=== PATIENT | female | born 1940 | race Caucasian/White ===

== ENCOUNTER 2021-01-14 09:06 | Day surgery (SDC) | payer MEDICARE, SELFPAY ==
--- NOTE | 2021-01-14 08:59 | HO.ANESPROP2 ---
HPI - Anesthesia Eval Consult details Narrative: 80 yo female patient for EGD, Colonoscopy [facility] Past Medical History Medical History Asthma CAD (coronary artery disease) Carotid artery disease CKD (chronic kidney disease) Diabetes Dyslipidemia Gout HTN (hypertension) Hx of myocardial infarction Hypothyroidism On anticoagulant therapy PAF (paroxysmal atrial fibrillation) Surgical History Surgical History History of quadruple bypass Hx of section Hx of hysterectomy Social History Social History Patient Tobacco Use Status: Never used Tobacco Use of substances other than those prescribed or required for medical reasons: No Are you DNR?: Yes Advance Directives: No Advance Directives Information Provided: Yes Meds Allergies Allergy/AdvReac Type Severity Reaction Status Date / Time amlodipine [From Norvasc] Allergy Unknown Verified 01/10/21 10:32 celecoxib [From Celebrex] Allergy Unknown Verified 01/10/21 10:32 ciprofloxacin [From Cipro] Allergy Unknown Verified 01/10/21 10:32 clarithromycin [From Biaxin] Allergy Unknown Verified 01/10/21 10:32 doxycycline Allergy Unknown Verified 01/10/21 10:32 glimepiride [From Amaryl] Allergy Unknown Verified 01/10/21 10:32 glyburide Allergy Unknown Verified 01/10/21 10:32 hydrochlorothiazide Allergy Unknown Verified 01/10/21 10:32 latex Allergy Unknown Verified 01/10/21 10:32 lisinopril Allergy Unknown Verified 01/10/21 10:32 mepolizumab [From Nucala] Allergy Unknown Verified 01/10/21 10:32 metformin [From Glucophage] Allergy Unknown Verified 01/10/21 10:32 morphine Allergy Unknown Verified 01/10/21 10:32 nifedipine [From Procardia] Allergy Unknown Verified 01/10/21 10:32 oxybutynin [From Ditropan] Allergy Unknown Verified 01/10/21 10:32 Penicillins Allergy Unknown Verified 01/10/21 10:32 pioglitazone [From Actos] Allergy Unknown Verified 01/10/21 10:32 risedronate sodium Allergy Unknown Verified 01/10/21 10:32 [From Actonel] sulfamethoxazole Allergy Unknown Verified 01/10/21 10:32 [From Bactrim] trimethoprim [From Bactrim] Allergy Unknown Verified 01/10/21 10:32 Home Medications Medication Instructions Recorded Confirmed Last Taken Type amiodarone 200 mg tablet 200 mg PO DAILY 01/10/21 01/10/21 Unknown History apixaban 2.5 mg tablet (Eliquis) 2.5 mg PO BID 01/10/21 01/10/21 Unknown History carvedilol 3.125 mg tablet 3.125 mg PO BID 01/10/21 01/10/21 Unknown History cholecalciferol (vitamin D3) 25 25 mcg PO DAILY 01/10/21 01/10/21 Unknown History mcg (1,000 unit) capsule (Vitamin D3) clopidogrel 75 mg tablet 75 mg PO DAILY 01/10/21 01/14/21 01/08/21 History cranberry extract 250 mg tablet mg PO 01/10/21 Unknown History felodipine 5 mg tablet,extended 5 mg PO DAILY 01/10/21 01/10/21 Unknown History release 24 hr glipizide 5 mg tablet 2.5 mg PO BID 01/10/21 01/10/21 Unknown History isosorbide mononitrate 60 mg 60 mg PO DAILY 01/10/21 01/14/21 01/14/21 05:30 History tablet,extended release 24 hr losartan 50 mg tablet 50 mg PO DAILY 01/10/21 01/10/21 Unknown History omeprazole 20 mg tablet,delayed 20 mg PO DAILY 01/10/21 01/10/21 Unknown History release ranolazine 500 mg tablet,extended 500 mg PO BID 01/10/21 01/10/21 Unknown History release,12 hr rosuvastatin 20 mg tablet 20 mg PO DAILY 01/10/21 01/10/21 Unknown History spironolactone 25 mg tablet 25 mg PO DAILY 01/10/21 01/10/21 Unknown History Exam Exam Date and Time: January 14, 2021 0859 Height,Weight and Vital Signs: Height 5 ft 2 in Weight 65.317 kg Vital Signs Temp Pulse Resp BP Pulse Ox 01/14/21 09:42 96.7 F L 57 18 173/59 H 98 fy Pertinent Lab Results Pertinent Lab Results: 01/02 12 lead ekg: SB 50. Incomplete RBBB. Cannot rule out anterior [place]
[2021-01-14 09:39] LABS: Glucose, Whole Blood 90 mg/dL (60-115)
[2021-01-14 09:42] VITALS: BP 173/59; PULSE 57; RESP 18; TEMP 35.9; O2SAT 98; BMI 26.3
--- NOTE | 2021-01-14 09:42 | MHC.SHP ---
Pre-Procedural Eval Section A Date of Service: 01/14/21 The patient is an INPATIENT: No Changes since office visit: No Cold of Flu in the past 2 weeks, No New Medical Problems, No Changes in Medication and No Patient answered all questions The History & Physical has been completed within 30 days and I have reviewed it.: Yes Section B Chief Complaint: Gastric hemorrhage Allergies: Allergies Allergy/AdvReac Type Severity Reaction Status Date / Time amlodipine [From Norvasc] Allergy Unknown Verified 01/10/21 10:32 celecoxib [From Celebrex] Allergy Unknown Verified 01/10/21 10:32 ciprofloxacin [From Cipro] Allergy Unknown Verified 01/10/21 10:32 clarithromycin [From Biaxin] Allergy Unknown Verified 01/10/21 10:32 doxycycline Allergy Unknown Verified 01/10/21 10:32 glimepiride [From Amaryl] Allergy Unknown Verified 01/10/21 10:32 glyburide Allergy Unknown Verified 01/10/21 10:32 hydrochlorothiazide Allergy Unknown Verified 01/10/21 10:32 latex Allergy Unknown Verified 01/10/21 10:32 lisinopril Allergy Unknown Verified 01/10/21 10:32 mepolizumab [From Nucala] Allergy Unknown Verified 01/10/21 10:32 metformin [From Glucophage] Allergy Unknown Verified 01/10/21 10:32 morphine Allergy Unknown Verified 01/10/21 10:32 nifedipine [From Procardia] Allergy Unknown Verified 01/10/21 10:32 oxybutynin [From Ditropan] Allergy Unknown Verified 01/10/21 10:32 Penicillins Allergy Unknown Verified 01/10/21 10:32 pioglitazone [From Actos] Allergy Unknown Verified 01/10/21 10:32 risedronate sodium Allergy Unknown Verified 01/10/21 10:32 [From Actonel] sulfamethoxazole Allergy Unknown Verified 01/10/21 10:32 [From Bactrim] trimethoprim [From Bactrim] Allergy Unknown Verified 01/10/21 10:32 Plan I have reviewed the history and physical and performed a pertinent physical examination on my patient. No changes have occurred unless specified.
[2021-01-14] MEDS: Lactated Ringers 1,000 ML 50 ML IVCONT (09:52)
--- NOTE | 2021-01-14 10:40 | P.BOP_ITS ---
Brief Operative Note Date of Service: 01/14/21 Pre-op diagnosis: gi bleed Post-op diagnosis: same (gastritis) Procedure: egd, colon Surgeon: Ronny Pinto Anesthesia: MAC Was an Import Export Agent used for this Procedure?: No Estimated blood loss (mL): 1.0 Pathology: other (antral biopsies) Condition: stable Disposition: PACU
[2021-01-14 10:44] VITALS: BP 114/47; PULSE 53; RESP 18; TEMP 37.2; O2SAT 98
--- NOTE | 2021-01-14 10:55 | OP_ITS ---
SURGEON: Ronny Pinto MD INDICATIONS: GI bleeding. PREOPERATIVE DIAGNOSIS: POSTOPERATIVE DIAGNOSIS: PROCEDURE PERFORMED: 1. Upper endoscopy with biopsy. 2. Colonoscopy to the terminal ileum. ESTIMATED BLOOD LOSS: COMPLICATIONS: ANESTHESIA: ASSISTANTS: SPECIMENS: MEDICATIONS: Monitored anesthesia care. DESCRIPTION OF PROCEDURE: History and physical performed. The risks and benefits of the procedure were explained to the patient. Informed consent was obtained. The patient was placed in the left lateral decubitus position. The Olympus video gastroscope was introduced into the esophagus, stomach, and duodenum. Examination was performed and the scope was removed. She was repositioned for colonoscopy. A digital rectal exam was performed and was found to be normal. The Olympus pediatric video colonoscope was introduced into the rectum and advanced to the cecum without difficulty. The cecum was identified by transillumination, palpation, and identification of ileocecal valve. Examination was performed and the scope was removed. She tolerated both procedures well and was taken to recovery area in stable condition. FINDINGS: UPPER ENDOSCOPY: Esophagus: The esophagus was normal. There was no esophagitis. Stomach: The stomach showed no evidence of masses or ulcers. There was antral gastritis without ulceration. Biopsies were obtained from the antrum to evaluate for H pylori. Duodenum: The bulb and second portion were normal. COLONOSCOPY: The terminal ileum was examined and appeared normal. The visualized colonic mucosa was normal. The quality of the prep was good. No polyps were identified. Retroflexed examination was normal. IMPRESSION: 1. Gastritis. 2. Normal colonoscopy. RECOMMENDATIONS: 1. Follow up the biopsy results. 2. Repeat colonoscopy for cancer screening is not recommended based on age. MD KAREN Portillo/REAL / [id number]
[2021-01-14 10:57] VITALS: BP 164/59; PULSE 59; RESP 18; TEMP 37.2; O2SAT 98
--- NOTE | 2021-01-14 12:31 | HO.ANESPROP2 ---
HPI - Anesthesia Eval Consult details Narrative: 80 yo female patient for EGD, Colonoscopy PMF Active Problems Active Problems: H/o GI bleed Iron deficiency anemia HTN- Difficult to control CAD S/p stents 19yrs ago, CABGx4 18 yrs ago. Cath 08/2019 Only 2/4 grafts patent Angina. On medical therapy but still with symptoms of chest pain Paroxysmal afib. Sinus vic today. On eliquis. Last dose about 1 week ago CKD stage 3 Peripheral Artery disease S/p Left common iliac stent 2007. On Plavix. Last dose over a week ago GERD Asthma. Controlled Frequent UTIs Subclinical hypothyroidism Hematuria Past Medical History Medical History (Updated 01/14/21 @ 12:35 by Claudia Orellana MD) Asthma CAD (coronary artery disease) Carotid artery disease CKD (chronic kidney disease) Diabetes Dyslipidemia Gout HTN (hypertension) Hx of myocardial infarction Hypothyroidism On anticoagulant therapy PAF (paroxysmal atrial fibrillation) Family History Family history of problems with anesthesia: No Surgical History Surgical History History of quadruple bypass Hx of section Hx of hysterectomy History of Problems with Anesthesia: No Social History Social History Patient Tobacco Use Status: Never used Tobacco Use of substances other than those prescribed or required for medical reasons: No Are you DNR?: Yes Advance Directives: No Advance Directives Information Provided: Yes Meds Allergies Allergy/AdvReac Type Severity Reaction Status Date / Time amlodipine [From Norvasc] Allergy Unknown Verified 01/10/21 10:32 celecoxib [From Celebrex] Allergy Unknown Verified 01/10/21 10:32 ciprofloxacin [From Cipro] Allergy Unknown Verified 01/10/21 10:32 clarithromycin [From Biaxin] Allergy Unknown Verified 01/10/21 10:32 doxycycline Allergy Unknown Verified 01/10/21 10:32 glimepiride [From Amaryl] Allergy Unknown Verified 01/10/21 10:32 glyburide Allergy Unknown Verified 01/10/21 10:32 hydrochlorothiazide Allergy Unknown Verified 01/10/21 10:32 latex Allergy Unknown Verified 01/10/21 10:32 lisinopril Allergy Unknown Verified 01/10/21 10:32 mepolizumab [From Nucala] Allergy Unknown Verified 01/10/21 10:32 metformin [From Glucophage] Allergy Unknown Verified 01/10/21 10:32 morphine Allergy Unknown Verified 01/10/21 10:32 nifedipine [From Procardia] Allergy Unknown Verified 01/10/21 10:32 oxybutynin [From Ditropan] Allergy Unknown Verified 01/10/21 10:32 Penicillins Allergy Unknown Verified 01/10/21 10:32 pioglitazone [From Actos] Allergy Unknown Verified 01/10/21 10:32 risedronate sodium Allergy Unknown Verified 01/10/21 10:32 [From Actonel] sulfamethoxazole Allergy Unknown Verified 01/10/21 10:32 [From Bactrim] trimethoprim [From Bactrim] Allergy Unknown Verified 01/10/21 10:32 Active Medications: Current Medications Lactated Ringer's (Lr) 1,000 mls @ 50 mls/hr IVCONT .Q20H JEANA Last Admin: 01/14/21 09:52 Dose: 50 mls/hr Documented by: Home Medications Medication Instructions Recorded Confirmed Last Taken Type amiodarone 200 mg tablet 200 mg PO DAILY 01/10/21 01/10/21 Unknown History apixaban 2.5 mg tablet (Eliquis) 2.5 mg PO BID 01/10/21 01/10/21 Unknown History carvedilol 3.125 mg tablet 3.125 mg PO BID 01/10/21 01/10/21 Unknown History cholecalciferol (vitamin D3) 25 25 mcg PO DAILY 01/10/21 01/10/21 Unknown History mcg (1,000 unit) capsule (Vitamin D3) clopidogrel 75 mg tablet 75 mg PO DAILY 01/10/21 01/14/21 01/08/21 History cranberry extract 250 mg tablet mg PO 01/10/21 Unknown History felodipine 5 mg tablet,extended 5 mg PO DAILY 01/10/21 01/10/21 Unknown History release 24 hr glipizide 5 mg tablet 2.5 mg PO BID 01/10/21 01/10/21 Unknown History isosorbide mononitrate 60 mg 60 mg PO DAILY 01/10/21 01/14/21 01/14/21 05:30 History tablet,extended release 24 hr losartan 50 mg tablet 50 mg PO DAILY 01/10/21 01/10/21 Unknown History omeprazole 20 mg tablet,delayed 20 mg PO DAILY 01/10/21 01/10/21 Unknown History release ranolazine 500 mg tablet,extended 500 mg PO BID 01/10/21 01/10/21 Unknown History release,12 hr rosuvastatin 20 mg tablet 20 mg PO DAILY 01/10/21 01/10/21 Unknown History spironolactone 25 mg tablet 25 mg PO DAILY 01/10/21 01/10/21 Unknown History Exam Exam Date and Time: January 14, 2021 1231 Height,Weight and Vital Signs: Height 5 ft 2 in Weight 65.317 kg Vital Signs Temp 96.7 F L 01/14/21 09:42 Pulse 597 01/14/21 09:42 Resp 18 01/14/21 09:42 BP 173/59 H 01/14/21 09:42 Pulse Ox 98 01/14/21 09:42 Pertinent Lab Results Pertinent Lab Results: Laboratory Tests 01/14/21 09:34 POC Glucose 90 LABORATORY 01/03/21 Sodium 140mmol/L Potassium 4.5mmol/L Chloride 107mmol/L Bicarbonate 22mmol/L BUN 16mg/dL Creatinine 1.2mg/dL 01/02/21 WBC 8.4k/mm3 Hgb 10.2 Gm/dL Hct 30.7% Plt 235k/mm3 Narrative Narrative: 08/18/20 Transthoracic echo: LV chamber size normal. Mild concentric hypertrophy. EF 55-65%. Moderate aortic stenosis RUTH 1.1cm. Mean gradient 38 mmHg. Trace to mild AR. Mild MR. C/w echo 08/19/2019 aortic stenosis has worsened 11/25/20: CXR - No vascular congestion Airway Mallampati Class: II TM Dist: >3cm Neck ROM: Full Partial: Upper and Lower Heart: RRR + murmur Lungs: CTAB Assessment and Plan Assessment Anesthesia Assessment: Anesthesia Plan Discussed and Chart Reviewed Final Anesthetic Review Family History of Problems with Anesthesia: No History of Problems with Anesthesia: No NPO: Yes ASA Class: IV Final Preanesthetic Review: No Changes in Pt Med Stat, Meds/Allgs Chart Reviewed, Consent Obtained/Reviewed and Anes Risks/Benef Reviewed Patient Risk: High Procedure Risk: Low Assessment/Block/Sedation in SS: Assess/Block/Sedation-SS Anesthetic Plan Anesthetic Plan: MAC: Disposition: Standard PACU
== END 2021-01-14 11:28 | disposition home or self-care (01) ==
PROVIDERS: Visit Provider Internal Medicine Gastroenterology
PROC: (CPT 45378; principal; 2021-01-14 09:30)
DX: K92.2 Gastrointestinal hemorrhage, unspecified (principal); K29.50 Unspecified chronic gastritis without bleeding; K21.9 Gastro-esophageal reflux disease without esophagitis; I25.10 Atherosclerotic heart disease of native coronary artery without angina pectoris; I10 Essential (primary) hypertension; Z79.899 Other long term (current) drug therapy; Z66 Do not resuscitate; Z95.1 Presence of aortocoronary bypass graft; I48.0 Paroxysmal atrial fibrillation; Z79.01 Long term (current) use of anticoagulants; E11.22 Type 2 diabetes mellitus with diabetic chronic kidney disease; I12.9 Hypertensive chronic kidney disease with stage 1 through stage 4 chronic kidney disease, or unspecified chronic kidney disease; N18.9 Chronic kidney disease, unspecified; Z79.84 Long term (current) use of oral hypoglycemic drugs
CPT/HCPCS: 45378; 43239; 82947; 88305; 88342